=== PATIENT | male | born 1995 | race Caucasian/White ===

== ENCOUNTER 2019-08-27 11:37 | Emergency (ER) | payer OTHER, SELFPAY ==
[2019-08-27 11:51] VITALS: BP 116/77; PULSE 53; RESP 16; TEMP 36.6; O2SAT 99
--- NOTE | 2019-08-27 12:39 | ED.GENADULT ---
HPI - General Adult General Chief complaint: Nausea/Vomiting/Diarrhea Stated complaint: Nausea/Vomiting/Diarrhea/Rib pain/Chest pain Time Seen by Provider: 08/27/19 12:40 Source: patient Mode of arrival: ambulatory Limitations: no limitations History of Present Illness HPI narrative: 24-year-old male patient presents to the [facility] with complaints of nausea, vomiting and abdominal pain for the past 2 weeks. Patient states that he does smoke marijuana. Patient states that he has been smoking marijuana ever since he has had abdominal pain. Patient states that he does have chronic abdominal pain. Patient states that this abdominal pain that is presenting with today just started a couple of days ago however the nausea and vomiting has been going on for about 2 weeks. Patient states that he last vomited this morning but was able to keep down some fluid. Denies any fevers that he is aware of. Related Data Home Medications Medication Instructions Recorded Confirmed No Home Medications 08/27/19 08/27/19 Allergies Allergy/AdvReac Type Severity Reaction Status Date / Time No Known Drug Allergies Allergy Unknown Unknown Verified 08/27/19 12:10 Review of Systems Review of Systems: Narrative: CONSTITUTIONAL: Denies fever, chills, or sweats. EYES: Denies visual changes, redness, or discharge. ENT: Denies rhinorrhea, congestion, sore throat, or otalgia. CARDIOVASCULAR: Denies chest pain, palpitations, or edema. RESPIRATORY: Denies cough or dyspnea. GASTROINTESTINAL: Positive abdominal pain, nausea, vomiting, and diarrhea. GENITOURINARY: Denies dysuria or hematuria. SKIN: Denies rash or itching. MUSCULOSKELETAL: Denies back pain, joint pain, or myalgia. NEUROLOGIC: Denies headache, numbness, or weakness. PSYCHIATRIC: Denies anxiety or depression. [facility] Past Medical History Medical History (Updated 08/27/19 @ 12:55 by BEN Mcdaniel) ADHD Asthma Comments At the time of my signature I agree with nursing past medical history, surgical, social, and family history. There is no relevant family history pertinent to the presenting complaint. Exam Narrative: Exam Narrative: GENERAL: Well-appearing, well-nourished, and in no acute distress. HEAD: Normocephalic, atraumatic. EYES: PERRLA and EOMI. ENT: Nares clear, no rhinorrhea or epistaxis. Mucous membranes moist. NECK: Supple. No lymphadenopathy CHEST: Clear to auscultation. No respiratory distress. HEART: Regular rate and rhythm. No murmur heard. Normal peripheral pulses. ABDOMEN: Soft, flat, nondistended. No guarding, rebound tenderness, or rigid. Patient does have tenderness noted to the left upper quadrant and right upper quadrant on palpation. No pulsatilla masses. Hyperactive bowel sounds present in all four quadrants. No organomegaly. Negative Bolton?s sign. No periumbicial tenderness. No Supra public tenderness or distension. Good femoral pulses bilaterally. No hernia noted. No scars or surface trauma. EXTREMITIES: Normal range of motion. No edema. SKIN: Warm, dry, no rash. NEURO: No focal deficits. Alert and oriented x3. Course Vital Signs Vital signs: Vital Signs Temperature 36.6 C 08/27/19 11:51 Pulse Rate 53 L 08/27/19 11:51 Respiratory Rate 16 08/27/19 11:51 Blood Pressure 116/77 08/27/19 11:51 Pulse Oximetry 99 08/27/19 11:51 Temperature 36.6 C 08/27/19 11:51 Pulse Rate 53 L 08/27/19 11:51 Respiratory Rate 16 08/27/19 11:51 Blood Pressure 116/77 08/27/19 11:51 Pulse Oximetry 99 08/27/19 11:51 Vital signs reviewed. Pulse is put in a 16 but actually pulse is 53 today. Transfer Transfered to: [place] Transportation: Other (Private vehicle with grandmother.) Transfer rationale: Abdominal pain with nausea vomiting diarrhea Accepting physician: Dr. Gutierrez Transfer comments: Called and spoke with Dr. Gutierrez at [facility] and gave her report on patient that is coming in with 2 weeks of nausea vomiting diarrhea and a cou
--- NOTE | 2019-08-27 13:05 | PC.NURSE ---
Provider wanted pt to be transfered to the ED for further evaluation. Pt initially agreed to be transferred and has changed his mind and stated that he will not have a ride home from the hospital and he will need a note for work to be off work. Provider notified and declined to give pt a work note states that he needs to sign out AMA if refuses ER evlauation. Pt informed and verbalized understanding.
== END 2019-08-27 13:08 | disposition left against medical advice (07) ==
PROVIDERS: Emergency Provider Nurse Practitioner Family
DX: R10.11 Right upper quadrant pain (principal); R10.12 Left upper quadrant pain; J45.909 Unspecified asthma, uncomplicated
CPT/HCPCS: 99211; G0463